=== PATIENT | female | born 1970 | race Caucasian/White ===

== ENCOUNTER 2020-03-04 11:06 | Outpatient (REF) | payer BC, SELFPAY | END 2020-03-04 11:07 | disposition home or self-care (01) | LOC: HO.LAB 11:06 | PROVIDERS: PCP Internal Medicine; Visit Provider Internal Medicine | DX: Z20.828 Contact with and (suspected) exposure to other viral communicable diseases (principal) | CPT/HCPCS: C9803; U0003 ==

== ENCOUNTER 2020-03-14 09:32 | Outpatient (REF) | payer BC, SELFPAY | END 2020-03-14 09:33 | disposition home or self-care (01) | LOC: HO.LAB 09:32 | PROVIDERS: Visit Provider Internal Medicine | DX: Z20.828 Contact with and (suspected) exposure to other viral communicable diseases (principal) | CPT/HCPCS: C9803; U0003 ==